=== PATIENT | female | born 1950 | race African-American/Black ===

== ENCOUNTER 2017-02-21 07:11 | Emergency (ER) | payer MEDICARE, MEDICAID ==
[~2017-02-21] VITALS: Ht 162.6 cm; Wt 90.7 kg
[~2017-02-21 07:11] MED LIST: ALBUTEROL2.5 MG/3 M INH; BETOPTIC BOTH EYES; BRIMONIDINE TART5 ML BOTH EYES; COLACE100 MG PO; DILTIAZEM 24HR120 M1 ORAL; GUAIFENESIN-CO118 M1 PO; HYDRALAZINE HCL50 MG PO; HYDROCODON-ACE1 EA15 ORAL; KEFLEX500 MG ORAL; LASIX40 MG ORAL; LASIX40 MG PO; LEVAQUIN750 MG ORAL; LUMIGAN1 DROP BOTH EYES; METFORMIN HCL500 M1 ORAL; NITROGLYCERIN0.4 MG SL; NORCO 10/3251 EA ORAL; NORCO 5-325 TA1 EACH ORAL; ONDANSETRON HCL8 M1 PO; PREDNISONE20 MG ORAL; PREDNISONE50 MG ORAL; PROMETH-CODEIN 65 ML PO; QVAR INH1 PUFF INH; RANITIDINE HCL300 MG PO; RITALIN5 MG PO; ROBAXIN-750750 MG PO; SINGULAIR10 MG ORAL; TIMOPTIC 0.5%1 DRO1 BOTH EYES; VERAPAMIL HCL180 M1 PO; XOPENEX HFA15 GM IH; XOPENEX1.25 MG/3 HHN; ZITHROMAX250 MG ORAL; ZOFRAN ODT4 MG ORAL
--- NOTE | 2017-02-21 07:17 | Emergency Room Report ---
History of Present Illness General Chief Complaint: To Be Triaged Source: Patient, Medical Record Present Illness HPI 66YOF walk-in with 2-3 days intermittent left sided sharp, non-radiating, 6/10 chest pain. Occurs under left breast. Worse with movement, change of position. No assoc fever/chills, SOB, cough, URI symptoms. Doesnt take daily ASA. Didnt take HTN medications last night or this morning. Allergies: Coded Allergies: ENALAPRIL (Verified Allergy, Unknown, Hives, 01/30/14) Patient History Past Medical History: HTN, COPD Past Surgical History: other - Right mastectomy Pertinent Family History: none Social History: Reports: smoking Now: No Immunizations: UTD Reviewed Nursing Documentation: PMH: Agreed, PSxH: Agreed Nursing Documentation-PMH Hx Cardiac Problems: No Hx Hypertension: Yes Hx Asthma: Yes Hx COPD: No Hx Diabetes: Yes Hx Cancer: Yes - BREAST, RIGHT MASTECTOMY Hx Gastrointestinal Problems: No Hx Neurological Problems: No - Bilateral total knee replacement Hx Cerebrovascular Accident: No Hx Seizures: No Review of Systems All Other Systems: negative except mentioned in HPI Physical Exam Sp02 EP Interpretation: reviewed, abnormal General Appearance: normal inspection, well appearing, no apparent distress, alert Head: atraumatic ENT: normal ENT inspection, hearing grossly normal, normal voice Neck: normal inspection, full range of motion, supple, no bony tend Respiratory: normal inspection, lungs clear, normal breath sounds, no respiratory distress, no retraction, no wheezing, other - S/p right mastectomy, chest symmetrical, palpation of chest normal Cardiovascular #1: normal inspection Gastrointestinal: normal inspection, normal bowel sounds, non tender, soft, no guarding, no hernia Genitourinary: no CVA tenderness Musculoskeletal: normal inspection, back normal, normal range of motion, Lucius' s Sign negative Neurologic: normal inspection, alert, oriented x3, responsive, stumper feller III-XII nml as tested, motor strength/tone normal, speech normal Psychiatric: normal inspection, judgement/insight normal, mood/affect normal Skin: normal inspection, normal color, no rash Medical Decision Making Diagnostic Impression: Primary Impression: Chest wall pain Additional Impressions: HTN (hypertension) Qualified Codes: I10 - Essential (primary) hypertension CKD (chronic kidney disease) Qualified Codes: N18.1 - Chronic kidney disease, stage 1 ER Course Chest wall pain - VS notable hypertension (didnt take BP meds last night or today) on triage. By the time patient placed in stretcher, BP down to 149/79 without ED intervention. Afebrile. No tachypnea or hypoxia - History of COPD but no SOB, no hypoxia, no tachypnea. No wheezing. Very low suspicion for COPD exacerbation - ECG is NSR. No ischemia. Unchanged from previous. Troponin 0. Unlikely ACS given duration of 2-3 days. - Low suspicion for PE given no sinus tach on ECG, no tachypnea, no tachycardia , no hypoxia. - CXR negative for PNA, PTX - Labs: Mild serumCr elevation. Seen previously, ?mild CKD - Improved with IV toradol - Likely MSK pain - Need mammogram of left breast, outpatient followup DC home EKG Diagnostic Results Rate: normal Rhythm: NSR ST Segments: no acute changes Other Impression Previously seen LVH has resolved ASA given to the pt in ED: No Rhythm Strip Diag. Results EP Interpretation: yes Rate: 60 Rhythm: NSR, no PVC's, no ectopy Chest X-Ray Diagnostic Results Chest X-Ray Ordered: Yes # of Views/Limited/Complete: 1 View Interpretation: no consolidation, no effusion, no pneumothorax, no acute cardiopulmonary disease Indication: Chest Pain Impression: No acute disease Date Electronically Signed: Feb 21, 2017 Time Electronically Signed: 08:15 Status: improved Disposition: HOME, SELF-CARE SANCHEZ ASHER M.D. Feb 21, 2017 07:17
[2017-02-21] MEDS ORDERED: SPIRONOLACTONE100 MG ORAL (07:30)
[2017-02-21] MEDS ORDERED: Ketorolac 30mg Inj IV ONE (07:30)
[2017-02-21 07:56] LABS: BASOPHILS % (AUTO) 0.7 % (0.0-2.0); EOSINOPHILS % (AUTO) 3.2 % (0.0-3.0); LYMPHOCYTES % (AUTO) 41.1 % (20.0-45.0); MEAN CORPUSCULAR VOLUME 74 FL (80-99); MEAN PLATELET VOLUME 6.8 FL (6.5-10.1); MONOCYTES % (AUTO) 7.6 % (1.0-10.0); NEUTROPHILS % (AUTO) 47.3 % (45.0-75.0); PLATELET COUNT 272 K/UL (150-450); RED BLOOD COUNT 4.93 M/UL (4.20-5.40); RED CELL DISTRIBUTION WIDTH 14.6 % (11.6-14.8); WHITE BLOOD COUNT 10.2 K/UL (4.8-10.8)
[2017-02-21 08:06] LABS: ALANINE AMINOTRANSFERASE 18 U/L (3-33); ANION GAP 15 (5-15); ASPARTATE AMINO TRANSFERASE 21 U/L (5-40); CALCIUM 8.9 mg/dL (8.6-10.2); CARBON DIOXIDE 19 mEQ/L (20-30); CHLORIDE 107 mEQ/L (98-107); GLOMERULAR FILTRATION RATE > 60 mL/min (>60); HEMOLYSIS 2; POTASSIUM 4.3 mEQ/L (3.4-4.9); SODIUM 141 mEQ/L (135-145); TOTAL PROTEIN 7.4 g/dL (6.6-8.7)
[2017-02-21 08:07] LABS: TROPONIN I < 0.30 ng/mL (<=0.30)
[2017-02-21 08:17] LABS: CKMB 3.6 ng/mL (< 3.8)
--- NOTE | 2017-02-21 08:27 | Diagnostic Imaging Report ---
Indications: Shortness of breath Technique: Portable AP chest Findings: Comparison: 06/30/16 Cardiac silhouette remains upper limits of normal in size. Pulmonary vasculature remains within normal limits. Inspiratory effort has improved. Visualized portions of Lungs and pleura remain clear. IMPRESSION: No evidence of acute disease, unchanged Stable chronic changes as described
[2017-02-21 08:34] VITALS: BP 165/98
== END 2017-02-21 08:43 | disposition home or self-care (01) ==
LOC: EMR 08:05
DX: R07.89 Other chest pain (principal); J44.9 Chronic obstructive pulmonary disease, unspecified; I12.9 Hypertensive chronic kidney disease with stage 1 through stage 4 chronic kidney disease, or unspecified chronic kidney disease; N18.9 Chronic kidney disease, unspecified; Z90.11 Acquired absence of right breast and nipple; E11.9 Type 2 diabetes mellitus without complications; Z96.653 Presence of artificial knee joint, bilateral; F17.200 Nicotine dependence, unspecified, uncomplicated
CPT/HCPCS: 36415; 71010; 80053; 82553; 84484; 85025; 93005; 96374; 99284; J1885

== ENCOUNTER 2018-01-27 10:41 | Emergency (ER) | payer MEDICARE, MEDICAID ==
[~2018-01-27] VITALS: Ht 172.7 cm; Wt 104.8 kg
[~2018-01-27 10:41] MED LIST changes: +SPIRONOLACTONE100 MG ORAL
[2018-01-27] MEDS ORDERED: PREDNISONE20 MG ORAL (11:22)
[2018-01-27 11:34] VITALS: BP 135/84
--- NOTE | 2018-01-28 07:12 | Emergency Room Report ---
History of Present Illness General Chief Complaint: General Complaint Source: Patient, Medical Record Present Illness HPI 67-year-old female presents ED complaining of pain to her right nostril. States that she has a "abscess" inside her right nostril for the last month. States it is very painful, 7 out of 10, sharp, nonradiating. Denies any difficulty breathing. States she was seen by her PMD and was prescribed her asthma medications but states they're not helping. Denies fevers or chills. Denies any drainage or discharge. No other aggravating relieving factors. Denies any other associated symptoms Allergies: Coded Allergies: ENALAPRIL (Verified Allergy, Unknown, Hives, 01/30/14) Patient History Past Medical History: DM, HTN, asthma, other - breast cancer Past Surgical History: other - mastectomy Pertinent Family History: none Social History: Denies: smoking, alcohol use, drug use Now: No Immunizations: UTD Reviewed Nursing Documentation: PMH: Agreed; PSxH: Agreed Nursing Documentation-PMH Past Medical History: No History, Except For Hx Cardiac Problems: No Hx Hypertension: Yes Hx Asthma: Yes Hx COPD: No Hx Diabetes: Yes Hx Cancer: Yes - BREAST, RIGHT MASTECTOMY Hx Gastrointestinal Problems: No Hx Neurological Problems: No - Bilateral total knee replacement Hx Cerebrovascular Accident: No Hx Seizures: No Review of Systems All Other Systems: negative except mentioned in HPI Physical Exam Vital Signs Date Time Temp Pulse Resp B/P (MAP) Pulse Ox O2 Delivery O2 Flow Rate FiO2 01/27/18 10:46 98.0 67 18 141/80 95 Room Air 98.1 Sp02 EP Interpretation: reviewed, normal General Appearance: no apparent distress, alert, GCS 15, non-toxic Head: normocephalic Eyes: bilateral eye normal inspection, bilateral eye PERRL ENT: hearing grossly normal, normal pharynx, no angioedema, normal voice, other - minimal swelling to R nares. no fluctuance. no discharge. no erythema/ induraion Neck: normal inspection Respiratory: normal inspection Cardiovascular #1: normal inspection Gastrointestinal: normal inspection Rectal: deferred Genitourinary: no CVA tenderness Musculoskeletal: normal inspection Neurologic: alert, oriented x3, responsive, motor strength/tone normal, sensory intact, speech normal Psychiatric: normal inspection Skin: normal inspection Lymphatic: normal inspection Medical Decision Making Diagnostic Impression: Primary Impression: Swollen nostril ER Course Hospital Course 67-year-old female presents ED complaining of swelling and pain to her right nostril Differential diagnoses include: Cellulitis, dermatitis, insect bite, abscess Clinical course Patient placed on stretcher. After initial history, physical exam reveals an elderly female in no acute distress. On exam there is some minimal swelling appreciated to the entrance of the right naris. No fluctuance or discharge. No erythema or induration. No tenderness on exam. Airway is otherwise patent I discussed findings with patient I do not believe she has an abscess. I believe some of the swelling could be related to her allergies. Recommend medications like Flonase per we will prescribe prednisone. I will provide a referral to ENT Diagnosis - swelling of nostril stable and discharged to home with prescription for prednisone. Instructed to followup with PMD/ENT. Instructed return to ED if symptoms recur or worsen Last Vital Signs Date Time Temp Pulse Resp B/P (MAP) Pulse Ox O2 Delivery O2 Flow Rate FiO2 01/27/18 11:34 97.8 67 18 135/84 95 Room Air 97.8 Status: improved Disposition: HOME, SELF-CARE Condition: Stable Scripts Prednisone* (PREDNISONE*) 20 Mg Tablet 40 MG ORAL DAILY, #10 TAB Prov: Nahum Cisneros MD 01/27/18 Referrals: NON PHYSICIAN (PCP) Rob Flores MD Patient Instructions: Nasal Foreign Body Nahum Cisneros MD January 28, 2018 07:12
== END 2018-01-27 11:28 | disposition home or self-care (01) ==
LOC: EMR 11:00
DX: J34.89 Other specified disorders of nose and nasal sinuses (principal); I10 Essential (primary) hypertension; J45.909 Unspecified asthma, uncomplicated; E11.9 Type 2 diabetes mellitus without complications; Z85.3 Personal history of malignant neoplasm of breast; Z90.11 Acquired absence of right breast and nipple
CPT/HCPCS: 99283

== ENCOUNTER 2018-04-15 20:31 | Emergency (ER) | payer MEDICARE, OTHER ==
[~2018-04-15] VITALS: Ht 167.6 cm; Wt 104.3 kg
[2018-04-15] MEDS ORDERED: Tylenol #3 tab (300mg/30mg) ORAL ONE (21:15)
--- NOTE | 2018-04-15 22:14 | Emergency Room Report ---
History of Present Illness General Chief Complaint: Lower Extremity Injury Source: Patient Present Illness HPI 67-year-old female with history of diabetes, hypertension, remote history of breast cancer in remission for over 20 years, left total knee replacement in 2009 presents with left ankle and left foot pain for the past few months, reports it's worse over the past 1-2 days. She reports pain is achy constant diffuse, worse with bearing weight, has had no relief with [id number] medications, she denies any trauma, and cannot think of any alleviating factors other than avoiding weightbearing. She reports the pain radiates from the bottom of her foot all the way up the posterior aspect extending into her calf area. she denies chest pain, s, cough, shortness of breath hemoptysis. Allergies: Coded Allergies: ENALAPRIL (Verified Allergy, Unknown, Hives, 01/30/14) Patient History Past Medical History: see triage record Last Menstrual Period: n/a Now: No Reviewed Nursing Documentation: PMH: Agreed; PSxH: Agreed Nursing Documentation-PMH Hx Cardiac Problems: Yes - arrythmia Hx Hypertension: Yes Hx Asthma: Yes Hx COPD: No Hx Diabetes: Yes Hx Cancer: Yes - BREAST, RIGHT MASTECTOMY Hx Gastrointestinal Problems: No Hx Neurological Problems: No - Bilateral total knee replacement Hx Cerebrovascular Accident: No Hx Seizures: No Review of Systems All Other Systems: negative except mentioned in HPI Physical Exam Vital Signs Date Time Temp Pulse Resp B/P (MAP) Pulse Ox O2 Delivery O2 Flow Rate FiO2 04/15/18 20:43 98.3 76 16 181/103 94 Room Air 98.2 Sp02 EP Interpretation: reviewed, normal General Appearance: no apparent distress, alert, non-toxic Head: normocephalic Eyes: bilateral eye normal inspection, bilateral eye PERRL, bilateral eye EOMI ENT: normal ENT inspection, hearing grossly normal, normal pharynx, no angioedema, normal voice, moist mucus membranes Neck: normal inspection, full range of motion, supple, supple/symm/no masses Respiratory: chest non-tender, lungs clear, normal breath sounds, chest symmetrical, palpation of chest normal Cardiovascular #1: normal peripheral pulses, regular rate, rhythm, no edema Cardiovascular #2: 2+ radial (R), 2+ radial (L), 2+ dorsalis pedis (R), 2+ dorsalis pedis (L) Gastrointestinal: normal inspection, non tender, soft, no mass, no guarding, no rebound Rectal: deferred Genitourinary: normal inspection, no CVA tenderness Musculoskeletal: back normal, gait/station normal, normal range of motion, non- tender, no calf tenderness, Lucius's Sign negative - Negative on right, positive on left Neurologic: alert, responsive, press operator apprentice III-XII nml as tested, motor strength/tone normal, sensory intact, speech normal Psychiatric: judgement/insight normal, memory normal, mood/affect normal Skin: normal color, no rash, warm/dry, normal turgor Lymphatic: no adenopathy Medical Decision Making Diagnostic Impression: Primary Impression: Foot pain, left ER Course Patient with atraumatic left foot pain, seems to be chronic, she has obvious bunion to left foot, but there is no secondary signs of infection and this is a chronic problem. Her foot pain is mainly over the plantar portion of her foot extending up into her heel and to her Achilles tendon and calf, but she also reports diffuse pain as well. Her no exam findings concerning for cellulitis or infection. I do not suspect claudication as she has excellent pulses and her symptoms are not consistent with claudication. X-rays are unremarkable other than the chronic deformity of the first metatarsophalangeal joint. US negative for DVT. Patient was given 2 tabs of Tylenol 3, which she reports she was taking home with good relief. I will give her a prescription for gabapentin , Flexeril, recommend she follow up with cryptographic technician, this pain may represent diabetic neuropathy versus some form of tendinitis or plantar fasciitis, however her pain seems to be diffuse in her foot and I do not have a certain diagnosis. Will give aircast and crutches. 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
[2018-04-16] MEDS ORDERED: GABAPENTIN300 MG ORAL (00:01)
[2018-04-16] MEDS ORDERED: ACETAMINOPHEN-1 EAC1 ORAL (00:01)
[2018-04-16 00:45] VITALS: BP 181/103
--- NOTE | 2018-04-16 09:42 | Diagnostic Imaging Report ---
Indication: Foot pain Technique: 3 views left foot Comparison: none Findings: There is severe hallux valgus and bunion formation. There is minimal metatarsus adductus. There is there is planus. No acute fractures. No dislocations. The joint spaces are preserved. Impression: No acute bony trauma
--- NOTE | 2018-04-16 09:43 | Diagnostic Imaging Report ---
Indication: Pain Technique: 3 views of the left ankle Comparison: none Findings: No acute fractures. No dislocations. The joint spaces are preserved. Impression: Negative
--- NOTE | 2018-04-16 23:34 | Diagnostic Imaging Report ---
APPROVED REPORT CPT Code: 40195 Present Symptoms Lower Extremity Pain: Left LEFT LEG: Venous imaging reveals a patent deep venous system. There is no evidence of thrombus within the femoral, popliteal or tibial segments. The greater saphenous vein is also within normal limits. Doppler indicates normal spontaneous flow within these segments.
== END 2018-04-16 00:45 | disposition home or self-care (01) ==
LOC: EMR 21:38
DX: M79.672 Pain in left foot (principal); Z96.653 Presence of artificial knee joint, bilateral; Z85.3 Personal history of malignant neoplasm of breast; Z90.11 Acquired absence of right breast and nipple; E11.9 Type 2 diabetes mellitus without complications; I10 Essential (primary) hypertension; J45.909 Unspecified asthma, uncomplicated; I49.9 Cardiac arrhythmia, unspecified; Z88.8 Allergy status to other drugs, medicaments and biological substances; M25.572 Pain in left ankle and joints of left foot
CPT/HCPCS: 93971; 99284

== ENCOUNTER 2018-05-25 12:51 | Emergency (ER) | payer MEDICARE, OTHER ==
[~2018-05-25] VITALS: Ht 167.6 cm; Wt 103.9 kg
[~2018-05-25 12:51] MED LIST changes: +ACETAMINOPHEN-1 EAC1 ORAL; +GABAPENTIN300 MG ORAL
[2018-05-25 13:11] VITALS: BP 157/90
--- NOTE | 2018-05-25 13:28 | Emergency Room Report ---
History of Present Illness General Chief Complaint: Skin Rash/Abscess Source: Patient Present Illness HPI 67-year-old female patient presents ER complaining of multiple on right upper leg. reports lesion has been present for several years however in the past 5 months was gotten bigger. Denies surrounding erythema or edema. Reports that painful to put on her clothes were when its movement. Denies fever, chest pain , shortness of breath. States that she is currently taking Eliquis, states takes for atrial fibrillation. Denies other acute symptoms. Allergies: Coded Allergies: ENALAPRIL (Verified Allergy, Unknown, Hives, 01/30/14) Patient History Past Medical History: see triage record Reviewed Nursing Documentation: PMH: Agreed; PSxH: Agreed Nursing Documentation-PMH Past Medical History: No History, Except For Hx Cardiac Problems: Yes - arrythmia Hx Hypertension: Yes Hx Asthma: Yes Hx COPD: No Hx Diabetes: Yes Hx Cancer: Yes - BREAST, RIGHT MASTECTOMY Hx Gastrointestinal Problems: No Hx Neurological Problems: No - Bilateral total knee replacement Hx Cerebrovascular Accident: No Hx Seizures: No Review of Systems All Other Systems: negative except mentioned in HPI Physical Exam Vital Signs Date Time Temp Pulse Resp B/P (MAP) Pulse Ox O2 Delivery O2 Flow Rate FiO2 05/25/18 12:55 97.7 77 16 157/90 96 Room Air 97.7 Sp02 EP Interpretation: reviewed, normal General Appearance: well appearing, no apparent distress, alert, GCS 15, non- toxic Head: normocephalic, atraumatic Eyes: bilateral eye normal inspection, bilateral eye PERRL ENT: hearing grossly normal, normal pharynx, no angioedema, normal voice, uvula midline, moist mucus membranes Neck: full range of motion Respiratory: lungs clear, normal breath sounds, no rhonchi, no respiratory distress, no accessory muscle use, no wheezing, speaking full sentences Cardiovascular #1: regular rate, rhythm, no edema Musculoskeletal: back normal, digits/nails normal, gait/station normal, normal range of motion, non-tender Psychiatric: mood/affect normal Skin: other - 1cm elevated hyperkeratotic raised mass, no surrounding erythema or edema, no bleeding Medical Decision Making PA Attestation Dr. Almazan is my supervising Physician whom patient management has been discussed with. Diagnostic Impression: Primary Impression: Seborrheic keratosis ER Course Pt. presents to the ED c/o "hanging mole". Ddx considered but are not limited to atopic dermatitis, scabies, shingles, hives, urticaria, actinic keratosis, seborrheic keratosis, mole. Vital signs: are WNL, pt. is afebrile Ordered medication. ER COURSE physical exam consistent with seborrheic keratosis. Advised patient that she needs to have it removed and biopsied by a instrument sterilizer. Informed patient that due to currently having Eliquis medication , cannot remove the ER currently, needs to be taken out by dermatologists and sent for biopsy. Will provide patient with dermatology referral. Patient states that she'll follow-up with primary care provider tomorrow and requests referral. in ER, placed sterile gauze over mass to help prevent irritation when patient is dressing. no localized signs of infection, doesn't require antibiotics. Followup with dermatology. DISCHARGE: At this time pt. is stable for d/c to home. Patient resting comfortably, in no acute distress, nontoxic appearinge. Will provide printed patient care instructions, and any necessary prescriptions. Care plan and follow up instructions have been discussed with the patient prior to discharge. Patient provided with list of healthcare clinics to establish primary care physician. Patient instructed to follow-up with primary care provider in 3 - 5 days. Patient questions asked and answered. ER precautions given. Patient instructed to return to ER immediately for any new or worsening of symptoms including but not limited to increasing SOB, persistent fever. - Please note that this Emergency Department Report was dictated using [employer] pressman technology software, occasionally this can lead to erroneous entry secondary to interpretation by the dictation equipment. Last Vital Signs Date Time Temp Pulse Resp B/P (MAP) Pulse Ox O2 Delivery O2 Flow Rate FiO2 05/25/18 13:11 97.7 96 16 157/90 96 Room Air 97.7 Disposition: HOME, SELF-CARE Condition: Stable Referrals: NOT CHOSEN IPA/MD,REFERRING (PCP) Patient Instructions: Seborrheic Keratosis Additional Instructions: Followup with primary care provider in 1-2 days. Request referral to dermatology. Do not scratch or itch. Apply cool compresses to affected area. Patient questions asked and answered. ER precautions given, patient instructed to return to ER immediately for any new or worsening of symptoms. [facility] [place] [facility] Leonid Kendall May 25, 2018 13:27
[2018-05-25 13:33] VITALS: BP 157/90
== END 2018-05-25 13:33 | disposition home or self-care (01) ==
LOC: EMR 13:08
DX: L82.1 Other seborrheic keratosis (principal); E11.9 Type 2 diabetes mellitus without complications; I10 Essential (primary) hypertension; J45.909 Unspecified asthma, uncomplicated; Z85.3 Personal history of malignant neoplasm of breast; Z90.11 Acquired absence of right breast and nipple; Z96.653 Presence of artificial knee joint, bilateral
CPT/HCPCS: 99282

== ENCOUNTER 2018-07-07 12:47 | Emergency (ER) | payer MEDICARE, OTHER ==
[~2018-07-07] VITALS: Ht 167.6 cm; Wt 95.3 kg
[2018-07-07] MEDS ORDERED: Methocarbamol 500mg tab ORAL ONE (13:00)
[2018-07-07] MEDS: traMADol 50mg tab ORAL ONE ×2 (13:43→14:24)
--- NOTE | 2018-07-07 14:18 | Emergency Room Report ---
History of Present Illness General Chief Complaint: Lower Extremity Injury Present Illness HPI 69-year-old female patient presents ER brought in by ambulance complaining of right-sided lower extremity and hip pain. Patient reports that she was in a earlier when she slipped and fell onto right side of her hip, thigh and back. reports fell onto her right arm as well, reports fell on right hand and wrist. Denies loss of ROM of hand and wrist. Reports right hand dominant. Denies hitting her head or loss of consciousness. Denies bowel or bladder incontinence. Reports difficulty with ambulation secondary to pain. She denies pain radiating down her legs.reports history of bilateral knee replacement. States was "years ago". Denies knee pain currently. Reports pain with standing. Denies fever, chest pain, SOB, abdominal pain. (Leonid Kendall) Allergies: Coded Allergies: ENALAPRIL (Verified Allergy, Unknown, Hives, 01/30/14) Patient History Past Medical History: see triage record Reviewed Nursing Documentation: PMH: Agreed; PSxH: Agreed (Leonid Kendall) Nursing Documentation-PMH Hx Cardiac Problems: Yes - arrythmia, rosita knee replacement Hx Hypertension: Yes Hx Asthma: Yes Hx COPD: No Hx Diabetes: Yes Hx Cancer: Yes - BREAST, RIGHT MASTECTOMY Hx Gastrointestinal Problems: No Hx Neurological Problems: No - Bilateral total knee replacement Hx Cerebrovascular Accident: No Hx Seizures: No (Leonid Kendall P.ARodrigue) Review of Systems All Other Systems: negative except mentioned in HPI (Leonid Kendall P.A.) Physical Exam Vital Signs Date Time Temp Pulse Resp B/P (MAP) Pulse Ox O2 Delivery O2 Flow Rate FiO2 07/07/18 12:49 98.8 87 16 173/104 98 Room Air Sp02 EP Interpretation: reviewed, normal General Appearance: well appearing, no apparent distress, alert, GCS 15, non- toxic Head: normocephalic, atraumatic Eyes: bilateral eye normal inspection, bilateral eye PERRL ENT: hearing grossly normal, normal pharynx, no angioedema, normal voice, uvula midline, moist mucus membranes Neck: full range of motion Respiratory: lungs clear, normal breath sounds, no rhonchi, no respiratory distress, no accessory muscle use, no wheezing, speaking full sentences Cardiovascular #1: regular rate, rhythm, no edema Cardiovascular #2: 2+ radial (R), 2+ radial (L) Gastrointestinal: non tender, soft, no mass, non-distended, no guarding, no rebound Genitourinary: no CVA tenderness Musculoskeletal: back normal, digits/nails normal, gait/station normal, normal range of motion, no calf tenderness, pelvis stable, Lucius's Sign negative, other - no leg length discrepancy, legs not held in internal or external rotation, NVI, no snuffbox tenderness, no defomrity, NVI, cap refill <2seconds, tender - proximal right femur laterally and hip Neurologic: alert, oriented x3, responsive, motor strength/tone normal, sensory intact Psychiatric: mood/affect normal Skin: no rash (Leonid Kendall) Medical Decision Making PA Attestation Dr. Singh is my supervising Physician whom patient management has been discussed with. (Leonid Kendall) Diagnostic Impression: Primary Impression: Fall from ground level Additional Impression: Contusion of hip and thigh ER Course Pt. presents to the ED c/o right lower extremity and wrist pain. Ddx considered but are not limited to fracture, sprain, strain, contusion, dislocation. No erythema, no warmth to touch, no fever, nontoxic appearing, low suspicion for septic joint. Soft compartments, no pulselessness, no pallor, no paresthesias, low suspicion for compartment syndrome at this time. Vital signs: are WNL, pt. is afebrile Ordered X-ray and pain medication. ER COURSE Provided with pain medication. An X-ray of the right femur shows no acute fracture per the preliminary reading. Likely contusion causing pain symptoms. An X-ray of the right wrist shows no acute fracture. per the preliminary reading. Likely mild sprain vs. contusion causing pain symptoms. Patient using hand actively, texting, dialing on phone, using hand and wrist to help her adjust while sitting in bed. Declined wrist splint. CT lumbar spine and CT pelvis shows no acute fracture per the preliminary reading. degenerative changes noted. Informed patient of results. Crutches declined by patient. Will provide patient with Rx for walker. Return to ER if pain symptoms worsen. Patient instructed on RICE method: rest, ice, compression, elevation for wrist pain. Patient instructed on rest, ice and heat. Patient instructed to be WBAT Contact information for orthopedic urgent care provided, follow-up with urgent care if unable to followup with primary care provider and get referral to technical support specialist. Followup with primary care provider. Discuss referral to ortho/pain management/ PT as needed. Discuss further imaging with MRI/CT as needed. Patient able to ambulate, lives on ground level floor, OK for outpatient followup and treatment. ER precautions given. Return to the ER if pain symptoms persist. DISCHARGE: -Rx provided for NORCO #10 for pain symptoms. CURES reviewed. -Rx provided for walker At this time pt. is stable for d/c to home. Patient is resting comfortably, in no acute distress, nontoxic appearing, talking without difficulty. Will provide printed patient care instructions, and any necessary prescriptions. Patient instructed to follow with primary care provider in 3 - 5 days and to request further follow-up as needed. Care plan and follow up instructions have been discussed with the patient prior to discharge. Take medications as directed. Patient questions asked and answered. Patient reports understanding and agreement to treatment plan. ER precautions given, patient instructed to return to ER immediately for any new or worsening of symptoms. - Please note that this Emergency Department Report was dictated using [employer] header technology software, occasionally this can lead to erroneous entry secondary to interpretation by the dictation equipment. (Leonid Kendall P.A.) Other X-Ray Diagnostic Results Other X-Ray Diagnostic Results #1: X-Ray ordered: right femur # of Views/Limited Vs Complete: 3 View Indication: Pain EP Interpretation: Yes PA Xray: Interpretation reviewed, by supervising MD, and agrees with findings. Interpretation: no dislocation, no soft tissue swelling, no fractures Impression: No acute disease PA Scribe Text Pk Kendall PA-C Other X-Ray Diagnostic Results #2: X-Ray ordered: right wrist # of Views/Limited Vs Complete: 3 View Indication: Pain EP Interpretation: Yes PA Xray: Interpretation reviewed, by supervising MD, and agrees with findings. Interpretation: no dislocation, no soft tissue swelling, no fractures Impression: No acute disease PA Scribe Text Pk Kendall PA-C (Leonid Kendall P.A.) Other X-Ray Diagnostic Results #1: Electronically Signed by: Khadaribe documentation reviewed by me and is accurate, Viet Singh MD Other X-Ray Diagnostic Results #2: Electronically Signed by: Scribe documentation reviewed by me and is accurate, Viet Singh MD (Viet Singh MD) CT/MRI/US Diagnostic Results CT/MRI/US Diagnostic Results #1: Imaging Test Ordered: CT pelvis Impression no acute fracture CT/MRI/US Diagnostic Results #2: Imaging Test Ordered: CT lumbar spine Impression No acute fracture identified. Moderate degree of degenerative spondylosis as described above (Leonid Kendall) Last Vital Signs Date Time Temp Pulse Resp B/P (MAP) Pulse Ox O2 Delivery O2 Flow Rate FiO2 07/07/18 12:49 98.8 87 16 173/104 98 Room Air Status: improved (Leonid Kendall) Disposition: HOME, SELF-CARE Condition: Stable Scripts Walker (ULTRA-LIGHT ROLLATOR) 1 Each Each EACH MC, #1 Prov: Leonid Kendall 07/07/18 Hydrocodone Bit/Acetaminophen 5-325* (NORCO 5-325*) 1 Each Tablet 1 TAB ORAL Q6H PRN for For Pain, #10 TAB 0 Refills Prov: Leonid Kendall 07/07/18 Referrals: NOT CHOSEN IPA/,REFERRING (PCP) Patient Instructions: Fall Prevention in the Home, [id number], Hip Pain Additional Instructions: Patient instructed to follow up with primary care provider and discuss further referral to orthopedics/physical therapy/pain management as needed. If unable to followup with PCP, followup with orthopedic urgent care in 5-7 days , call to schedule appointment. Patient instructed on RICE method: rest, ice, compression, elevation. Patient instructed to WBAT. Take medications as directed. Patient questions asked and answered. ER precautions given, patient instructed to return to ER immediately for any new or worsening of symptoms. [facility] [address] [facility] [address] [facility], [address] [email or web address] Leonid Kendall Jul 07, 2018 14:18 Viet Singh MD Jul 09, 2018 06:42
--- NOTE | 2018-07-07 14:28 | Diagnostic Imaging Report ---
Indication: Pain Thigh pain Findings: 2 views of the right femur were obtained. No acute fractures, malalignment, erosions or periostitis are identified. Soft tissues are unremarkable. Impression: Negative examination of the femur
[2018-07-07] MEDS ORDERED: Norco 5mg/325mg tab ORAL ONE (14:45)
--- NOTE | 2018-07-07 14:55 | Diagnostic Imaging Report ---
Indication: Back pain Technique: Continuous helical transaxial imaging of the lumbar spine was obtained from the lung bases to the pubic symphysis. No IV contrast was administered. Coronal 2-D reformats were also obtained. Study obtained in a Siemens sensation [address] Total Dose length Product (DLP): 945.[address] Dose Index Volume (CTDIvol): 29.67 mGy Comparison: None Findings: No acute fracture is identified. The bones are osteopenic. Mild anterolisthesis noted at L4-5 with narrowing of intervertebral discs. Moderate hypertrophy of the facet joints are demonstrated at multiple levels. The degree of facet arthropathy is most severe at L4-5 and L5-S1 where there is moderate to severe disease. Minimal disease of the facets are noted elsewhere throughout the lumbar spine. L5-S1 disc is narrowed with vacuum phenomena. Aorta is mildly calcified. IMPRESSION: No acute fracture identified. Moderate degree of degenerative spondylosis as described above The CT scanner at [facility] is accredited by the [employer] and the scans are performed using dose optimization techniques as appropriate to a performed exam including Automatic Exposure control.
--- NOTE | 2018-07-07 15:58 | Diagnostic Imaging Report ---
Indication: Pelvic pain. Trauma right hip Technique: Continuous helical transaxial imaging of the pelvis was obtained from the iliac crest to the pubic symphysis. Coronal 2-D reformats were also obtained. Study obtained in a Siemens sensation [address] Intravenous non-ionic contrast was administered. Total Dose length Product (DLP): 568.[address] Dose Index Volume (CTDIvol): 14.64 mGy Comparison: None Findings: No acute fracture is identified. Small inguinal nodes are demonstrated. Aortoiliac calcifications are present. Degenerative changes of the lower lumbar spine noted with hypertrophy of the facets. IMPRESSION: No acute injury appreciated. The CT scanner at [facility] is accredited by the [employer] and the scans are performed using dose optimization techniques as appropriate to a performed exam including Automatic Exposure control.
--- NOTE | 2018-07-07 15:59 | Diagnostic Imaging Report ---
Indication: Right wrist pain Findings: 3 views of the right wrist were obtained. No acute fracture is identified. Moderate DJD at the base of the thumb demonstrated. There is fusion of the capitate and hamate. There is narrowing of the distal radiocarpal joint. Fixation hardware noted fusing the first metacarpophalangeal joint. IMPRESSION: No acute fracture appreciated. Arthrosis as described above
[2018-07-07] MEDS ORDERED: NORCO 5-325 TA1 EACH ORAL (16:35)
[2018-07-07] MEDS ORDERED: ULTRA-LIGHT RO1 EACH MC (16:35)
[2018-07-07 16:50] VITALS: BP 143/97
== END 2018-07-07 16:57 | disposition home or self-care (01) ==
LOC: EDBD 12:47 → EDUNIT# 12:47 → EMR 13:31
DX: S70.01XA Contusion of right hip, initial encounter (principal); S70.11XA Contusion of right thigh, initial encounter; W01.0XXA Fall on same level from slipping, tripping and stumbling without subsequent striking against object, initial encounter; Y92.9 Unspecified place or not applicable; M25.531 Pain in right wrist; I10 Essential (primary) hypertension; E11.9 Type 2 diabetes mellitus without complications; J45.909 Unspecified asthma, uncomplicated; Z85.3 Personal history of malignant neoplasm of breast; Z90.11 Acquired absence of right breast and nipple; Z96.653 Presence of artificial knee joint, bilateral
CPT/HCPCS: 72131; 72192; 99284

== ENCOUNTER 2018-11-09 12:06 | Emergency (ER) | payer MEDICARE, OTHER ==
[~2018-11-09] VITALS: Ht 167.6 cm; Wt 104.3 kg
[~2018-11-09 12:06] MED LIST changes: +ULTRA-LIGHT RO1 EACH MC
--- NOTE | 2018-11-09 12:28 | NUR ---
ED Nurse Note: pt walked in c/o sorethroat x 2wks, pt airway intact, resp even and unlabored on RA, will cont monitor.
[2018-11-09] MEDS ORDERED: AMOXICILLIN500 MG ORAL (12:36)
[2018-11-09] MEDS ORDERED: TYLENOL EXTRA500 MG ORAL (12:36)
--- NOTE | 2018-11-09 12:36 | Emergency Room Report ---
History of Present Illness General Chief Complaint: Sore Throat Source: Patient Present Illness HPI 68-year-old female patient presents ER complaining of sore throat for the past 2 weeks. Reports pain with swallowing. Reports attempted to relieve symptoms with home remedies such as vinegar. Reports is taking Motrin without relief of symptoms. Denies fever, chest pain, shortness of breath, abdominal pain. Denies other aggravating or relieving factors. Allergies: Coded Allergies: ENALAPRIL (Verified Allergy, Unknown, Hives, 01/30/14) Patient History Past Medical History: see triage record Last Menstrual Period: na Reviewed Nursing Documentation: PMH: Agreed; PSxH: Agreed Nursing Documentation-PMH Past Medical History: No History, Except For Hx Cardiac Problems: Yes - arrythmia, rosita knee replacement Hx Hypertension: Yes Hx Asthma: Yes Hx COPD: No Hx Diabetes: Yes Hx Cancer: Yes - BREAST, RIGHT MASTECTOMY Hx Gastrointestinal Problems: No Hx Neurological Problems: No - Bilateral total knee replacement Hx Cerebrovascular Accident: No Hx Seizures: No Review of Systems All Other Systems: negative except mentioned in HPI Physical Exam Vital Signs Date Time Temp Pulse Resp B/P (MAP) Pulse Ox O2 Delivery O2 Flow Rate FiO2 11/09/18 12:19 97.7 71 20 169/88 98 Room Air Sp02 EP Interpretation: reviewed, normal General Appearance: well appearing, no apparent distress, alert, GCS 15, non- toxic Head: normocephalic, atraumatic Eyes: bilateral eye normal inspection, bilateral eye PERRL ENT: hearing grossly normal, normal pharynx, no angioedema, normal voice, TMs + canals normal, uvula midline, moist mucus membranes, tonsillar swelling, pharyngeal erythema, tonsillar exudate Neck: full range of motion, no meningismus, no bony tend Respiratory: lungs clear, normal breath sounds, no rhonchi, no respiratory distress, no accessory muscle use, no wheezing, speaking full sentences Cardiovascular #1: regular rate, rhythm, no edema Neurologic: alert, oriented x3, responsive, motor strength/tone normal, sensory intact Psychiatric: mood/affect normal Skin: no rash Lymphatic: adenopathy - Cervical Medical Decision Making PA Attestation Dr. Priest is my supervising Physician whom patient management has been discussed with. Diagnostic Impression: Primary Impression: Pharyngitis ER Course Pt presents to ED c/o sore throat. DDX considered but are not limited to influenza, viral URI, strep throat, pharyngitis, tonsillitis. no uvula deviation, no neck stiffness, no stridor, no tripoding, low suspicion for peritonsillar abscess. VITAL SIGNS are WNL, patient is afebrile ER COURSE: tonsillar exudates, pharyngeal erythema, lymphadenopathy, no cough, likely pharyngitis. Will provide antibiotic treatment. Continue taking Tylenol for relief of symptoms. saltwater gargles. Drink plenty of fluids. Symptomatic treatment. ER precautions given. DISCHARGE: Rx provided for amoxicillin -Rx given for Acetaminophen for fever/pain. At this time pt is stable for d/c to home. Patient resting comfortably, in no acute distress, nontoxic appearing, talking without difficulty Patient to take medications as instructed. Will provide with patient care instructions and any necessary prescriptions. Care plan and follow-up instructions provided. Patient instructed to follow-up with primary care provider in 3 - 5 days. Patient questions asked and answered. ER precautions given. Patient instructed to return to ER immediately for any new or worsening of symptoms including but not limited to fever, SOB, difficulty swallowing. - Please note that this Emergency Department Report was dictated using [employer] manufacturer technology software, occasionally this can lead to erroneous entry secondary to interpretation by the dictation equipment. Last Vital Signs Date Time Temp Pulse Resp B/P (MAP) Pulse Ox O2 Delivery O2 Flow Rate FiO2 11/09/18 12:19 97.7 71 20 169/88 98 Room Air Disposition: HOME, SELF-CARE Condition: Stable Scripts Acetaminophen* (TYLENOL EXTRA STRENGTH*) 500 Mg Tablet 500 MG ORAL Q8H PRN for Prn Headache/Temp > 101, #30 TAB 0 Refills Prov: Leonid Kendall P.ARodrigue 11/09/18 Amoxicillin* (AMOXIL*) 500 Mg Capsule 500 MG ORAL EVERY 8 HOURS for 7 Days, #21 CAP Prov: Leonid Kendall.Hazel 11/09/18 Patient Instructions: Pharyngitis, [id number] Additional Instructions: Followup with primary care provider in 3 -5 days. Salt water gargles Take Tylenol for pain and fever symptoms Drink plenty of water. Take medications as directed. Patient questions asked and answered. ER precautions given, patient instructed to return to ER immediately for any new or worsening of symptoms including but not limited to intractable vomiting, difficulty breathing, inability to eat. Leonid Kendall Nov 09, 2018 12:36
--- NOTE | 2018-11-09 12:46 | NUR ---
ED Nurse Note: pt cleared to be d/c per ER provider, pt discharge and aftercare instruction provided w/ prescription, pt education done via discussion and hand out, pt advised to follow up with pcp or return to ed if sx worsen or new sx develop, pt verbalized understanding and agrees with plan, ambulatory w/ steady gait, vss, resp even and unlabored on RA. left w/ all belongings, wristband removed.
[2018-11-09 12:48] VITALS: BP 165/87
[2018-11-09 12:49] VITALS: BP 165/87
== END 2018-11-09 12:46 | disposition home or self-care (01) ==
LOC: EMR 12:35
DX: J02.9 Acute pharyngitis, unspecified (principal); I10 Essential (primary) hypertension; J45.909 Unspecified asthma, uncomplicated; Z85.3 Personal history of malignant neoplasm of breast; Z90.11 Acquired absence of right breast and nipple
CPT/HCPCS: 99282

== ENCOUNTER 2018-11-30 07:24 | Emergency (ER) | payer MEDICARE, OTHER ==
[~2018-11-30] VITALS: Ht 167.6 cm; Wt 102.1 kg
[~2018-11-30 07:24] MED LIST changes: +AMOXICILLIN500 MG ORAL; +TYLENOL EXTRA500 MG ORAL
[2018-11-30] MEDS ORDERED: ELIQUIS2.5 MG PO (07:39)
--- NOTE | 2018-11-30 07:45 | NUR ---
ED Nurse Note: Pt came in from home due to asthma exerbation with coughing clear congestion and sore throat x 1 month. Pt stated she went to see PCP, was prescribed Amoxicillim but symptoms has not been relieved, asked for Z-pack but her did not give her the medication. AOx4, VSS. Will cont to monitor.
[2018-11-30 07:50] VITALS: BP 149/73
--- NOTE | 2018-11-30 08:03 | Emergency Room Report ---
History of Present Illness General Chief Complaint: Upper Respiratory Illness Source: Patient Present Illness HPI Patient presents with complaints of cough Reports has been ongoing for the past several days There is some clear sputum with it denies any chest pain Patient had reported that she felt her asthma was also exacerbated at times Patient reports that she has a sleep apnea machine However has not been able to use it over the past several days as it is a new machine Denies any vomiting denies any diarrhea Denies any recent travel or pleurisy patient has had a previous mastectomy Allergies: Coded Allergies: ENALAPRIL (Verified Allergy, Unknown, Hives, 01/30/14) Patient History Past Medical History: see triage record Pertinent Family History: none Last Menstrual Period: na Reviewed Nursing Documentation: PMH: Agreed; PSxH: Agreed Nursing Documentation-PMH Past Medical History: No History, Except For Hx Cardiac Problems: Yes - arrythmia, rosita knee replacement Hx Hypertension: Yes Hx Asthma: Yes Hx COPD: No Hx Diabetes: Yes Hx Cancer: Yes - BREAST, RIGHT MASTECTOMY Hx Gastrointestinal Problems: No Hx Neurological Problems: No - Bilateral total knee replacement Hx Cerebrovascular Accident: No Hx Seizures: No Review of Systems All Other Systems: negative except mentioned in HPI Physical Exam Vital Signs Date Time Temp Pulse Resp B/P (MAP) Pulse Ox O2 Delivery O2 Flow Rate FiO2 11/30/18 07:30 98.1 72 22 146/92 97 Room Air Sp02 EP Interpretation: reviewed, normal General Appearance: well appearing, no apparent distress Head: normocephalic, atraumatic Eyes: bilateral eye PERRL, bilateral eye EOMI ENT: hearing grossly normal, normal pharynx, TMs + canals normal, uvula midline Neck: full range of motion, supple, no meningismus, no bony tend Respiratory: normal breath sounds, no rhonchi, no respiratory distress, no retraction, no accessory muscle use, crackles - Very fine crackles bilaterally in the lower lobe however I cannot appreciate any obvious wheezing Cardiovascular #1: normal peripheral pulses, regular rate, rhythm, no edema, no gallop, no JVD, no murmur Gastrointestinal: normal bowel sounds, non tender, soft, no mass, no organomegaly, non-distended, no guarding, no hernia, no pulsatile mass, no rebound Genitourinary: no CVA tenderness Musculoskeletal: normal inspection Neurologic: oriented x3, responsive, shank skinner III-XII nml as tested, motor strength/ tone normal, sensory intact Psychiatric: mood/affect normal Skin: normal color, no rash, warm/dry, palpation normal, other - Right-sided mastectomy Lymphatic: normal inspection, no adenopathy Medical Decision Making Diagnostic Impression: Primary Impression: Pneumonia ER Course Patient is a fairly complex patient with multiple differential to consideration including but not limited to cardiac cardiopulmonary and vascular emergencies Initially patient's main complaint was regarding cough and feeling congested Also reported other sick contacts after the initial x-ray revealed questionable increased markings from previous baseline blood work including cardiac BNP and white blood cell count was obtained All remain within normal limits x-ray compared to previous looks very similar Patient will be placed on medications given her complaints and requires close follow-up Labs Test 11/30/18 09:50 White Blood Count 9.5 K/UL (4.8-10.8) Red Blood Count 5.51 M/UL (4.20-5.40) Hemoglobin 11.5 G/DL (12.0-16.0) Hematocrit 37.3 % (37.0-47.0) Mean Corpuscular Volume 68 FL (80-99) Mean Corpuscular Hemoglobin 20.8 PG (27.0-31.0) Mean Corpuscular Hemoglobin Concent 30.8 G/DL (32.0-36.0) Red Cell Distribution Width 16.0 % (11.6-14.8) Platelet Count 244 K/UL (150-450) Mean Platelet Volume 5.8 FL (6.5-10.1) Neutrophils (%) (Auto) 47.4 % (45.0-75.0) Lymphocytes (%) (Auto) 36.5 % (20.0-45.0) Monocytes (%) (Auto) 10.4 % (1.0-10.0) Eosinophils (%) (Auto) 4.3 % (0.0-3.0) Basophils (%) (Auto) 1.5 % (0.0-2.0) Sodium Level 141 MMOL/L (136-145) Potassium Level 4.7 MMOL/L (3.5-5.1) Chloride Level 108 MMOL/L (98-107) Carbon Dioxide Level 21 MMOL/L (21-32) Anion Gap 12 mmol/L (5-15) Blood Urea Nitrogen 14 mg/dL (7-18) Creatinine 1.0 MG/DL (0.55-1.30) Estimat Glomerular Filtration Rate > 60 mL/min (>60) Glucose Level 113 MG/DL (74-106) Calcium Level 9.3 MG/DL (8.5-10.1) Total Bilirubin 0.6 MG/DL (0.2-1.0) Aspartate Amino Transf (AST/SGOT) 30 U/L (15-37) Alanine Aminotransferase (ALT/SGPT) 25 U/L (12-78) Alkaline Phosphatase 136 U/L (46-116) Pro-B-Type Natriuretic Peptide 182 pg/mL (0-125) Total Protein 8.1 G/DL (6.4-8.2) Albumin 3.5 G/DL (3.4-5.0) Globulin 4.6 g/dL Albumin/Globulin Ratio 0.8 (1.0-2.7) Rhythm Strip Diag. Results EP Interpretation: yes Rate: 66 Rhythm: NSR, no PVC's, no ectopy Chest X-Ray Diagnostic Results Chest X-Ray Diagnostic Results : Chest X-Ray Ordered: Yes # of Views/Limited/Complete: 1 View Indication: Shortness of Breath EP Interpretation: Yes Interpretation: no consolidation, no effusion, no pneumothorax, other - Questionable mild increased markings Impression: Other - No obvious acute change from previous Electronically Signed by: Brayan Almazan DO Last Vital Signs Date Time Temp Pulse Resp B/P (MAP) Pulse Ox O2 Delivery O2 Flow Rate FiO2 11/30/18 07:51 89 23 Room Air 11/30/18 07:50 149/73 98 11/30/18 07:30 98.1 Status: improved Disposition: HOME, SELF-CARE Condition: Improved Scripts Promethazine Hcl (PROMETHAZINE HCL*) 6.25 Mg/5 Ml Syrup 5 ML ORAL Q8H for 7 Days, #120 ML 0 Refills Prov: Brayan Almazan DO 11/30/18 Azithromycin* (ZITHROMAX*) 250 Mg Tablet 250 MG ORAL DAILY, #6 TAB 0 Refills Take two tables once daily for 1 day, then one tablet once daily for 4 days. Prov: Brayan Almazan DO 11/30/18 Referrals: NOT CHOSEN IPA/MD,REFERRING (PCP) Additional Instructions: Patient is provided with the discharge instructions notified to follow up with primary doctor in the next 2-3 days otherwise return to the er with any worsening symptoms. Please note that this report is being documented using DRAGON technology. This can lead to erroneous entry secondary to incorrect interpretation by the dictating instrument. Brayan Almazan DO Nov 30, 2018 08:03
--- NOTE | 2018-11-30 08:22 | NUR ---
ED Nurse Note: X-ray tech at bedside for imaging.
--- NOTE | 2018-11-30 09:02 | Diagnostic Imaging Report ---
EXAM: XR Chest, 1 View CLINICAL HISTORY: COUGH TECHNIQUE: Frontal view of the chest. COMPARISON: No relevant prior studies available. FINDINGS: Lungs: Mildly increased interstitial markings. The lungs are otherwise clear without focal consolidation. Pleural space: Unremarkable. The costophrenic angles are sharp. No visible pneumothorax. Heart: The cardiac silhouette appears mildly enlarged however may be magnified by portable film technique. Mediastinum: Unremarkable. Bones/joints: Mild degenerative changes throughout the visualized spine. Vasculature: Mild calcifications are noted within the aortic arch. Tubes, lines and devices: Telemetry leads overlie the thorax. IMPRESSION: Mildly increased interstitial markings. This is nonspecific and may be related to mild pulmonary vascular congestion or interstitial pneumonitis.
[2018-11-30 10:23] LABS: ANION GAP 12 mmol/L (5-15); BLOOD UREA NITROGEN 14 mg/dL (7-18); CALCIUM 9.3 MG/DL (8.5-10.1); CARBON DIOXIDE 21 MMOL/L (21-32); CHLORIDE 108 MMOL/L (98-107); POTASSIUM 4.7 MMOL/L (3.5-5.1); SODIUM 141 MMOL/L (136-145)
[2018-11-30 10:27] LABS: BASOPHILS % (AUTO) 1.5 % (0.0-2.0); EOSINOPHILS % (AUTO) 4.3 % (0.0-3.0); HEMATOCRIT 37.3 % (37.0-47.0); HEMOGLOBIN 11.5 G/DL (12.0-16.0); LYMPHOCYTES % (AUTO) 36.5 % (20.0-45.0); MEAN CORPUSCULAR VOLUME 68 FL (80-99); MONOCYTES % (AUTO) 10.4 % (1.0-10.0); NEUTROPHILS % (AUTO) 47.4 % (45.0-75.0); PLATELET COUNT 244 K/UL (150-450); RED BLOOD COUNT 5.51 M/UL (4.20-5.40); WHITE BLOOD COUNT 9.5 K/UL (4.8-10.8)
[2018-11-30 10:35] LABS: ALANINE AMINOTRANSFERASE 25 U/L (12-78); ALBUMIN 3.5 G/DL (3.4-5.0); ALBUMIN/GLOBULIN RATIO 0.8 (1.0-2.7); ALKALINE PHOSPHATASE 136 U/L (46-116); ASPARTATE AMINO TRANSFERASE 30 U/L (15-37); BILIRUBIN,TOTAL 0.6 MG/DL (0.2-1.0)
[2018-11-30] MEDS ORDERED: Promethazine/Codeine 5ml UD ORAL ONE (10:45)
[2018-11-30 11:22] VITALS: BP 136/74
[2018-11-30] MEDS ORDERED: PROMETHAZI6.25 MG/1 ORAL (11:23)
[2018-11-30] MEDS ORDERED: ZITHROMAX250 MG ORAL (11:23)
[2018-11-30 11:25] VITALS: BP 136/74
--- NOTE | 2018-11-30 11:25 | NUR ---
ER DISCHARGE NOTE: Patient is cleared to be discharged per ERMD, pt is aox4, on room air, with stable vital signs. pt was given dc and prescription instructions, pt was able to verbalize understanding, pt id band removed. pt is able to ambulate with steady gait. pt took all belongings.
== END 2018-11-30 11:25 | disposition home or self-care (01) ==
LOC: EMR 07:39
DX: J18.9 Pneumonia, unspecified organism (principal); I10 Essential (primary) hypertension; J45.909 Unspecified asthma, uncomplicated; Z96.653 Presence of artificial knee joint, bilateral; E11.9 Type 2 diabetes mellitus without complications; Z85.3 Personal history of malignant neoplasm of breast; Z90.11 Acquired absence of right breast and nipple; Z88.8 Allergy status to other drugs, medicaments and biological substances
CPT/HCPCS: 36415; 71045; 80053; 83880; 85025; 99283